=== PATIENT | male | born 1950 | race Caucasian/White ===

== ENCOUNTER 2022-09-18 14:08 | Outpatient (CLI) | payer MEDICARE, SELFPAY ==
--- NOTE | 2022-09-18 14:18 | US_ITS ---
WS: [id number] ULTRASOUND RENAL TECHNIQUE: Ultrasound examination of both kidneys. CLINICAL INFORMATION: CHRONIC KIDNEY DZ-STAGE 4/DM TYPE 2 COMPARISON: Ultrasound 2017 FINDINGS: RIGHT: Right kidney is normal in size and appearance. Echogenicity: Normal. Cortical thickness: 0.9 cm; Normal. Hydronephrosis: None. Perinephric fluid: None. Right kidney measures: 11.1 cm x 6.9 cm x 4.9 cm. LEFT: Left kidney is normal in size and appearance. Echogenicity: Normal. Cortical thickness: 1.1 cm; Normal. Hydronephrosis: None. Perinephric fluid: None. Left kidney measures: 11.3 cm x 6.6 cm x 3.6 cm. Normal visualized aorta. US/US renal BI* [id number] IMPRESSION: 1. No hydronephrosis in either kidney. Mild renal cortical atrophy. 2. No suspicious renal lesions. 3. Bladder is decompressed.
== END 2022-09-18 14:09 | disposition home or self-care (01) ==
PROVIDERS: PCP Electrodiagnostic Medicine; Visit Provider Internal Medicine Nephrology
DX: E11.22 Type 2 diabetes mellitus with diabetic chronic kidney disease (principal); N18.4 Chronic kidney disease, stage 4 (severe)
CPT/HCPCS: 76770

== ENCOUNTER 2023-02-16 09:08 | Outpatient (CLI) | payer MEDICARE, SELFPAY ==
[2023-02-16 09:34] LABS: Basophils # 0.1 10^3/uL (0.0-0.1); Basophils % 0.9 %; Eosinophils # 0.3 10^3/uL (0.0-0.8); Eosinophils % 4.5 %; Lymphocytes # 1.1 10^3/uL (0.8-4.8); Lymphocytes % 14.6 %; Mean Corpuscular HGB Conc 31.3 g/dL (30-55); Mean Corpuscular Hemoglobin 27.1 pg (27-33); Mean Corpuscular Volume 86.5 fl (82-101); Mean Platelet Volume 10.8 fL (7.4-10.4); Monocytes # 0.7 10^3/uL (0.2-0.9); Monocytes % 9.7 %; Neutrophils # 5.32 10^3/uL (1.8-7.7); Neutrophils % 69.8 %; Nucleated Red Blood Cells % 0 %; Platelet Count 239 10^3/cmm (157-399); Red Blood Count 3.47 10^6/uL (3.85-5.65); Red Cell Distribution Width 17.2 % (12.1-15.1); White Blood Count 7.62 10^3/uL (3.29-11.43)
[2023-02-16 09:59] LABS: Albumin Level 4.1 g/dL (3.5-5.2); Anion Gap 17.7 (5-19); Blood Urea Nitrogen 46 mg/dL (8-23); Calcium 9.2 mg/dL (8.5-10.5); Carbon Dioxide 23 mmol/L (22-29); Chloride 101 mmol/L (98-107); Glucose 128 mg/dL (65-115); Potassium 4.7 mmol/L (3.5-5.1); Sodium 137 mmol/L (136-145)
== END 2023-02-16 09:09 | disposition home or self-care (01) ==
PROVIDERS: PCP Electrodiagnostic Medicine; Visit Provider Internal Medicine Nephrology
DX: D64.9 Anemia, unspecified (principal); N17.9 Acute kidney failure, unspecified
CPT/HCPCS: 80069; 85025

== ENCOUNTER 2023-03-02 09:51 | Outpatient (CLI) | payer MEDICARE, SELFPAY ==
[2023-03-02 10:05] LABS: Basophils # 0.1 10^3/uL (0.0-0.1); Eosinophils # 0.4 10^3/uL (0.0-0.8); Eosinophils % 6.2 %; Lymphocytes % 14.4 %; Mean Corpuscular HGB Conc 31.9 g/dL (30-55); Mean Corpuscular Hemoglobin 26.6 pg (27-33); Mean Corpuscular Volume 83.6 fl (82-101); Mean Platelet Volume 10.7 fL (7.4-10.4); Monocytes # 0.5 10^3/uL (0.2-0.9); Monocytes % 7.3 %; Neutrophils # 5.04 10^3/uL (1.8-7.7); Neutrophils % 70.4 %; Nucleated Red Blood Cells % 0 %; Platelet Count 306 10^3/cmm (157-399); Red Blood Count 3.83 10^6/uL (3.85-5.65); Red Cell Distribution Width 15.8 % (12.1-15.1); White Blood Count 7.15 10^3/uL (3.29-11.43)
[2023-03-02 10:27] LABS: Albumin Level 4.2 g/dL (3.5-5.2); Anion Gap 19.7 (5-19); Blood Urea Nitrogen 54 mg/dL (8-23); Calcium 9.1 mg/dL (8.5-10.5); Carbon Dioxide 21 mmol/L (22-29); Chloride 99 mmol/L (98-107); Glucose 256 mg/dL (65-115); Phosphorus 4.5 mg/dL (2.5-4.5); Potassium 4.7 mmol/L (3.5-5.1); Sodium 135 mmol/L (136-145)
== END 2023-03-02 09:52 | disposition home or self-care (01) ==
PROVIDERS: PCP Electrodiagnostic Medicine; Visit Provider Internal Medicine Nephrology
DX: N17.9 Acute kidney failure, unspecified (principal)
CPT/HCPCS: 80069; 85025

== ENCOUNTER 2023-12-04 08:30 | Oncology outpatient (recurring) (ONCR) | payer MEDICARE, SELFPAY ==
--- OUTSIDE RECORDS SUMMARY | 2023-11-19 11:35 | XMS_ITS ---
Author Name Slade Aidan Address [address] [place] [address] Organization Unknown Address [address] [place] [id number] ALLERGIES AND ADVERSE REACTIONS No information ASSESSMENT No information CHIEF COMPLAINT No information MEDICATIONS No information OBJECTIVE DATA No information PHYSICAL EXAMINATION No information TREATMENT PLAN Planned Care Start Date Provider Encounter for Check-up [id number] [facility] PROBLEMS No information RESULTS No information REVIEW OF SYSTEMS No information SUBJECTIVE DATA No information VITAL SIGNS No information
--- OUTSIDE RECORDS SUMMARY | 2023-11-19 11:35 | XMS_ITS ---
Author Name Unknown Organization [facility] ALLERGIES AND ADVERSE REACTIONS No information ASSESSMENT No information CHIEF COMPLAINT No information Medications Date Medication Dosage Startdate Stopdate Active Dispense Refills N dccode Drugcode Pharmacyid Isprescription Srcstatus 12:00 :00 AM clopidogrel 75 mg tablet 90.0000 00 10/01/2023 12:00:00 AM 1 90.355496 2 [id number] [phone] [id number] [facility] P ACTIVE 2022 12:00 :00 AM torsemide 20 mg tablet 120.000 000 02/15/2023 12:00:00 AM 1 120.37746 0 [id number] 725 [id number] [facility] ACTIVE 12:00 :00 AM cephalexin 500 mg capsule 20.0000 00 07/07/2023 12:00:00 AM 08/05/2023 12:00:00 AM 0 20.684332 0 [id number] 701 [id number] [facility] P HISTORICAL 2022 12:00 :00 AM indomethaci n 03/17/2023 12:00:00 AM 0 M HISTORICAL 2022 12:00 :00 AM insulin lispro (u-100) 100 unit/ml subcutaneou s solution 10.0000 00 01/21/2023 12:00:00 AM 1 10.404360 0 [id number] 701 [id number] [facility] P ACTIVE 2023 12:00 :00 AM hydralazine 50 mg tablet 360.000 000 08/04/2023 12:00:00 AM 1 360.48131 0 [id number] 301 [id number] [facility] ACTIVE 12:00 :00 AM hydrochloro thiazide 12.5 mg tablet 1 [id number] 011 [id number] ACTIVE 2022 12:00 :00 AM rosuvastati n 40 mg tablet 90.0000 00 1 90.882450 3 [id number] P ACTIVE 2023 12:00 :00 AM lantus solostar u-100 insulin 100 unit/ml (3 ml) subcutaneou s pen 60.0000 00 1 60.817449 3 775962 P ACTIVE 2023 12:00 :00 AM augmentin 500 mg-125 mg tablet 20.0000 00 07/07/2023 12:00:00 AM 0 20.042569 0 [id number] P HISTORICAL 2023 12:00 :00 AM rosuvastati n 40 mg tablet 90.0000 00 09/12/2023 12:00:00 AM 1 90.325607 1 [id number] 205 [id number] [facility] P ACTIVE 2023 12:00 :00 AM carvedilol 25 mg tablet 180.000 000 08/19/2023 12:00:00 AM 1 180.01341 0 [id number] 601 [id number] [facility] M ACTIVE 023 12:00 :00 AM losartan 50 mg tablet 90.0000 00 11/10/2022 12:00:00 AM 1 90.454385 0 [id number] 277 [id number] [facility] P ACTIVE 024 12:00 :00 AM lantus solostar u-100 insulin 100 unit/ml (3 ml) subcutaneou s pen 60.0000 00 10/03/2023 12:00:00 AM 1 60.387682 0 [id number] 900 [id number] [facility] P ACTIVE 024 12:00 :00 AM nitroglycer in 0.4 mg sublingual tablet 25.0000 00 07/08/2023 12:00:00 AM 1 25.776260 0 [id number] 601 [id number] [facility] P ACTIVE 03/01 12:00 :00 AM tramadol 50 mg tablet 20.0000 00 02/17/2023 12:00:00 AM 1 20.125345 0 [id number] 801 [id number] [facility] P ACTIVE 2023 12:00 :00 AM bd ultra-fine short pen needle 31 gauge x 08/26 100.000 000 06/08/2023 12:00:00 AM 1 100.61172 0 0 [id number] -- 871 P ACTIVE 024 12:00 :00 AM ferosul 325 mg (65 mg iron) tablet 180.000 000 1 180.62120 0 0 079285 P ACTIVE 2023 12:00 :00 AM ferosul 325 mg (65 mg iron) tablet 180.000 000 09/16/2023 12:00:00 AM 1 180.14237 0 0 [id number] 060 784349 -- 87 P ACTIVE 2023 12:00 :00 AM cephalexin 500 mg tablet 20.0000 00 08/05/2023 12:00:00 AM 0 20.805404 0 940079 P HISTORICAL 2023 12:00 :00 AM augmentin 875 mg-125 mg tablet 20.0000 00 1 20.987684 0 520318 P ACTIVE 2022 12:00 :00 AM torsemide 20 mg tablet 120.000 000 1 120.14583 0 0 715094 P ACTIVE 2023 12:00 :00 AM freestyle sudhir 14 day sensor kit 6.97926 0 1 6.893823 0 772415 P ACTIVE 2023 12:00 :00 AM nitroglycer in 0.4 mg sublingual tablet 25.0000 00 1 25.166437 0 265180 P ACTIVE 2023 12:00 :00 AM omeprazole 40 mg capsule,del ayed release 90.0000 00 1 90.132392 3 477067 P ACTIVE 024 12:00 :00 AM freestyle sudhir 14 day sensor kit 6.20594 0 09/30/2023 12:00:00 AM 1 6.351347 0 25436694 101 - 87 P ACTIVE 2023 12:00 :00 AM isosorbide mononitrate er 30 mg tablet,exte nded release 24 hr 90.0000 00 09/01/2023 12:00:00 AM 1 90.051876 0 46072721 401 381828 - P ACTIVE 2023 12:00 :00 AM hydralazine 50 mg tablet 360.000 000 1 360.21688 0 3 827299 P ACTIVE 2023 12:00 :00 AM clopidogrel 75 mg tablet 90.0000 00 1 90.044947 3 298169 P ACTIVE 2022 12:00 :00 AM torsemide 100 mg tablet 90.0000 00 1 90.440566 3 609581 P ACTIVE 2023 12:00 :00 AM torsemide 100 mg tablet 90.0000 00 09/10/2023 12:00:00 AM 1 90.600753 1 55060026 401 595459 [facility] P ACTIVE 2023 12:00 :00 AM amoxicillin 500 mg-potarmandu m clavulanate 125 mg tablet 20.0000 00 06/08/2023 12:00:00 AM 07/07/2023 12:00:00 AM 0 20.920262 0 [id number] 434 [id number] [facility] P HISTORICAL 2023 12:00 :00 AM omeprazole 40 mg capsule,del ayed release 90.0000 00 09/01/2023 12:00:00 AM 1 90.563516 2 84275219 401 539035 [facility]- 87 P ACTIVE 024 12:00 :00 AM bumetanide 1 mg tablet 30.0000 00 10/02/2023 12:00:00 AM 1 30.475187 0 [id number] 901 184859 [facility]- 87 P ACTIVE 2023 12:00 :00 AM isosorbide mononitrate er 30 mg tablet,exte nded release 24 hr 90.0000 00 1 90.298816 0 259556 P ACTIVE 2022 12:00 :00 AM tramadol 50 mg tablet 20.0000 00 1 20.549319 0 142029 P ACTIVE OBJECTIVE DATA No information PHYSICAL EXAMINATION No information TREATMENT PLAN No information PROBLEMS No information RESULTS No information REVIEW OF SYSTEMS No information SUBJECTIVE DATA No information VITAL SIGNS No information
--- OUTSIDE RECORDS SUMMARY | 2023-11-19 11:35 | XMS_ITS | Continuity of Care Document ---
Author Name Unknown Organization [facility] Address [address] [place] [address]- Care Team Providers Care Radiology Practitioner Assistant Name Role Phone Jean Paul Wall DO Primary Care Physician [phone] Encounter [employer] Number [id number] Date(s): 07/19/22 - 07/25/23 [facility] [address] [address] Attending Physician: Adrian Forde MD Allergies, Adverse Reactions, Alerts Substance Reaction Severity Status Beef BEEF Moderate Active Assessment and Plan Future Appointments Appointment Date:08/17/2023 03:00:00 PM Scheduled Provider:Adrian Forde MD Location:[facility] Appointment Type:Established Patient Future Scheduled Tests Radiology* ECHO Adult Complete 06/25/23 Medications acetaminophen 325 mg oral tablet 650 mg = 2 tab, PO/per tube, Q6H, PRN Temp, Mild Pain, Headache, Refill(s) 0, TAB Start Date: 01/21/23 Status: Ordered aspirin 81 mg oral delayed release tablet 81 mg = 1 tab, By mouth, Daily, # 90 tab, Refill(s) 0, given to patient Start Date: 06/11/22 Status: Ordered carvedilol 25 mg oral tablet 25 mg = 1 tab, By mouth, BID, # 180 tab, Refill(s) 3, Pharmacy: [facility], [id number], discontinue spironolactone, 1 tab By mouth BID, 101.36, 06/11/22 9:36:00 [employer], kg, Weight Start Date: 06/11/22 Status: Ordered clopidogrel 75 mg oral tablet 75 mg = 1 tab, By mouth, Daily, Refill(s) 0 Start Date: 02/21/22 Status: Ordered hydrALAZINE 50 mg oral tablet 50 mg = 1 tab, By mouth, QID, # 360 tab, Refill(s) 0 Start Date: 02/21/22 Status: Ordered Imdur 30 mg oral tablet, extended release 30 mg = 1 tab, By mouth, QAM, # 30 tab, Refill(s) 0, Pharmacy: [facility], [id number], SR TAB, 1 tab By mouth QAM, 92.1, 01/21/23 3:22:00 CDT, kg, Weight (kg) (Clinical) Start Date: 01/21/23 Status: Ordered insulin lispro 100 units/mL injectable solution Custom Correction Scale, SUBQ, 5XD, << Sliding Scale Comments >> 150 - 184 3 Units 185 - 219 6 Units 220 - 254 9 Units 255 - 289 12 Units 290 - 324 15 Units 325 - 359 18 Units 360 - 394 21 Units 395 - 400 24 Units Call i... Start Date: 01/21/23 Stop Date: 02/20/23 Status: Ordered insulin lispro 100 units/mL injectable solution 20 Units, SUBQ, TIDWM (three times a day with meals), # 10 mL, Refill(s) 0, Pharmacy: [facility], [id number], ROBERT, 20 Units SUBQ TIDWM (three times a day with meals),x30 Days, 92.1, 01/21/23 3:22:00 CDT, kg, Weight... Start Date: 01/21/23 Stop Date: 02/20/23 Status: Ordered LantUS Solostar Pen 100 units/mL subcutaneous solution See Instructions, Take 50 units subq in AM and IF blood sugar 180mg/dL or greater take 20 units at HS. rotate injection sites, # 10 mL, Refill(s) 0, Pharmacy: [facility], [id number], Instructions Replace Required... Start Date: 01/21/23 Status: Ordered nitroglycerin 0.4 mg sublingual tablet 0.4 mg = 1 tab, SL, Q5Min, PRN for chest pain, # 100 tab, Refill(s) 0 Start Date: 06/11/22 Status: Ordered [place]-3 oral capsule 1 cap, By mouth, Daily Start Date: 06/24/22 Status: Ordered rosuvastatin 40 mg oral tablet 40 mg = 1 tab, By mouth, QPM (every evening), Refill(s) 0 Start Date: 06/11/22 Status: Ordered torsemide 100 mg oral tablet 100 mg = 1 tab, By mouth, Daily, # 30 tab, Refill(s) 0, Pharmacy: [facility], [id number], TAB, 1 tab By mouth Daily, 92.1, 01/21/23 3:22:00 CDT, kg, Weight (kg) (Clinical) Start Date: 01/21/23 Status: Ordered Problem List Condition Confirmation Course Effective Dates Status H ealth Status Informant Anemia in chronic kidney disease Confirmed Active Aortic stenosis Confirmed Active CKD (chronic kidney disease), stage IV Confirmed Active CKD (chronic kidney disease) stage 5, GFR less than 15 ml/min Confirmed Resolved Chronic HFrEF (heart failure with reduced ejection fraction) Confirmed Active CAD (coronary artery disease) Confirmed Active Diabetic nephropathy Confirmed Active Hx of CABG Confirmed Active History of coronary artery stent placement Confirmed Active Hypertension Confirmed Active Moderate aortic stenosis Confirmed Active Type 2 diabetes mellitus Confirmed Active Procedures Procedure Date Related Diagnosis Body Site Status CABG Completed cardiac stents about 5 stents Completed ear removal Completed Social History Social History Type Response Smoking Status Never smoker; Smokel ess tobacco use: Never; Has the patient smoked in the last 365 days, even once? No entered on: 06/19/22 Sex Male Patient Care team information Care Team Personnel Name: Khanh Ventura NP, I Position: Inpatient-Midlevel Member Role: Nurse Practitioner Address: Address: [address] [place] [address]- [place] Name: Lorelei Branch Position: Inpatient-Midlevel Member Role: Nurse Practitioner Address: Address: [address] [place] [address]- [place] Name: Jean Paul Wall DO Position: 2 Restricted Providers Member Role: Primary Care Physician Address: Address: [address] [place] [id number] [place] [address] Care Team Related Persons Name: MORGAN CURRAN Name: Morgan Diaz
[2023-11-20 08:58] VITALS: BP 154/71; PULSE 79; RESP 16; TEMP 36.5; O2SAT 94
[2023-11-20] MEDS: iron sucrose 200 MG in sodium chloride 0.9% (100 ml) 100 ML 220 MG IV (09:05)
[2023-11-20] MEDS: sodium chloride 0.9% 250 ML 220 ML IV (09:05)
[2023-11-20 10:00] VITALS: BP 152/73; PULSE 80; RESP 16; TEMP 36.2; O2SAT 99
[2023-11-27 08:38] VITALS: BP 152/85; PULSE 84; RESP 16; TEMP 37.2; O2SAT 97
[2023-11-27] MEDS: iron sucrose 200 MG in sodium chloride 0.9% (100 ml) 100 ML 220 MG IV (08:44)
[2023-11-27 09:17] VITALS: BP 168/74; PULSE 75; RESP 17; TEMP 36.7; O2SAT 97
[2023-12-04 08:35] VITALS: BP 129/65; PULSE 65; O2SAT 96
[2023-12-04] MEDS: iron sucrose 200 MG in sodium chloride 0.9% (100 ml) 100 ML 220 MG IV (08:57)
[2023-12-04 10:17] VITALS: BP 160/78; PULSE 87; RESP 17; TEMP 36.2; O2SAT 96
== END 2023-12-04 23:59 | disposition home or self-care (01) ==
PROVIDERS: PCP Electrodiagnostic Medicine; Visit Provider Registered Nurse
DX: Z53.9 Procedure and treatment not carried out, unspecified reason (principal); D50.8 Other iron deficiency anemias
CPT/HCPCS: 96365; J1756; J7050